=== PATIENT | female | born 1975 | race Caucasian/White ===

== ENCOUNTER 2019-03-11 06:29 | Day surgery (SDC) | payer OTHER ==
[~2019-03-11 06:29] MED LIST: ASPI-630 PO; CALC500T30 PO; DEXT20CA7 PO; MULT-245 PO; OMEG1CAP27 PO; QUET50TA5 PO; VENL150C PO
[2019-03-11] MEDS ORDERED: MORPHINE SULFATE 2 MG/ML VIAL. IV PRN (07:00)
[2019-03-11] MEDS ORDERED: PROCHLORPERAZINE 10 MG/2 ML VIAL. IV PRN (07:00)
[2019-03-11] MEDS ORDERED: ONDANSETRON PF 4 MG/2 ML VIAL. IV PRN (07:00)
[2019-03-11] MEDS ORDERED: IV RINGERS,LACTATED 1000ML 1,000 ML IV SCH (07:00)
[2019-03-11] MEDS ORDERED: fentaNYL PF VIAL 100 MCG/2 ML VIAL IV PRN ×2 (07:00)
[2019-03-11] MEDS ORDERED: LIDOCAINE 1% PF 2 ML VIAL. ID PRN (07:00)
[2019-03-11] MEDS ORDERED: HYDROmorphone 2 MG/ML VIAL IV PRN (07:00)
[2019-03-11] MEDS ORDERED: SEVOFLURANE 61 TO 120 MINUTES. IH ONE (07:13)
[2019-03-11] MEDS ORDERED: fentaNYL PF VIAL 100 MCG/2 ML VIAL ONE (07:14)
[2019-03-11] MEDS ORDERED: GLYCOPYRROLATE 1 MG/5 ML VIAL. ONE (07:14)
[2019-03-11] MEDS ORDERED: ROCURONIUM 50 MG/5 ML VIAL. ONE (07:14)
[2019-03-11] MEDS ORDERED: DEXAMETHASONE SOD PHOS 4 MG/ML VIAL ONE (07:14)
[2019-03-11] MEDS ORDERED: ONDANSETRON PF 4 MG/2 ML VIAL. ONE (07:14)
[2019-03-11] MEDS ORDERED: MIDAZOLAM HCL/PF 2 MG/2 ML VIAL. ONE (07:14)
[2019-03-11] MEDS ORDERED: NEOSTIGMINE METHYLSULFATE 5 MG/5 ML SYRINGE. ONE (07:14)
[2019-03-11] MEDS ORDERED: KETOROLAC 30 MG/ML VIAL. ONE (07:14)
[2019-03-11] MEDS ORDERED: BUPIVACAINE-EPI 0.25%-1:200000 MPF 30 ML VIAL. INJ ONE (07:15)
[2019-03-11] MEDS ORDERED: LIDOCAINE 2% PF 5 ML VIAL. ONE (07:15)
[2019-03-11] MEDS ORDERED: PROPOFOL 20 ML IV ONE (07:15)
[2019-03-11] MEDS ORDERED: DESFLURANE 31 TO 60 MINUTES IH ONE (07:42)
--- NOTE | 2019-03-11 08:19 | PDOC ---
BRIEF OPERATIVE NOTE Date: Mar 11, 2019 Pre-Op Diagnosis Sterilization Post-Op Diagnosis Same Procedure Performed [facility] Eliezer. Salpingectomy Surgeon Dr. Mckeon Anesthesia Type: General Blood Loss 5 ml Specimens Obtained eliezer. fallopian tubes Findings nml size uterus, nml fallopian tubes and ovaries eliezer. Complications none Operative Note see dictation PRIYANKA MCKEON Jr, MD Mar 11, 2019 08:19
--- NOTE | 2019-03-11 08:21 | DISCH ---
DISCHARGE INSTRUCTIONS Condition on Discharge Condition on Discharge: Stable Activity After Discharge Activity Instructions for Disc: Activity as tolerated Lifting Instructions after Dis: No heavy lifting Driving Instructions after Dis: Do not drive today Diet after Discharge Diet after Discharge: Regular Contacting the DRJp after DC Call your doctor for: Concerns you may have Follow-Up Follow up with: Dr. Mckeon in 1 week. PRIYANKA MCKEON Jr, MD Mar 11, 2019 08:20
--- NOTE | 2019-03-11 08:24 | OP ---
DATE OF SURGERY: 03/11/2019 PREOPERATIVE DIAGNOSIS: Sterilization. POSTOPERATIVE DIAGNOSIS: Sterilization. PROCEDURE: Laparoscopic bilateral salpingectomy. SURGEON: Roger Mckeon MD ANESTHESIA: GETA. ESTIMATED BLOOD LOSS: Less than 5 mL. COMPLICATIONS: None. FINDINGS: Normal size uterus, normal fallopian tubes and ovaries bilaterally. SUMMARY: A 43-year-old female who desired permanent sterilization. She has a family history of ovarian cancer. Therefore, discussion was made on salpingectomy. She was counseled on the risks, benefits and expectations and voiced clear understanding to proceed. DESCRIPTION OF PROCEDURE: The patient was taken to surgery suite and placed in dorsal lithotomy position. She was prepped with Betadine solution as well for vaginal prep and ChloraPrep for abdominal prep and draped in sterile fashion. After adequate anesthesia, bivalve speculum was placed vaginally. The anterior lip of the cervix grasped with single tooth tenaculum. The acorn uterine manipulator was then placed. The bivalve speculum was removed. Attention was now placed on abdomen. Small transverse skin incision made just below the umbilicus. The Veress needle was then placed through the infraumbilical incision site. The abdomen was allowed to insufflate up to 1-1/2 liters CO2 gas. The Veress needle was then removed, 5 mm trocar was placed. Scope was positioned. The uterus appeared normal size. Fallopian tubes and ovaries appeared normal bilaterally. There was an incision was made in left lower quadrant, was 5 mm trocar site. The other was 8 mm trocar site. With the aid of [place] retractors and EnSeal, the right salpingectomy was performed in which the right fallopian tube was dissected away from the ovary and uterus. Using the EnSeal device, same process took place with the left adnexa. Area was hemostatic. The trocars were then removed under direct visualization. Abdomen was allowed to deflate as much as possible along with mechanical manipulation. The three skin incisions were reapproximated using 4-0 Vicryl suture in subcuticular manner. A 0.25% Marcaine with epinephrine was injected at each incision site. Uterine acorn manipulator and single tooth tenaculum were removed. The patient tolerated the procedure well and was taken to recovery room in stable condition. Sponge and needle count correct x 3. ROGER MCKEON MD DR: MICHEAL/rajat JOB#: [id number] / [id number]
[2019-03-11] MEDS ORDERED: oxyCODONE/APAP 5/325 1 TAB TABLET PO ONE (08:45)
[2019-03-11 08:50] VITALS: BP 109/67
--- NOTE | 2019-03-12 17:06 | PATHOLOGY ---
[facility] Accession Number: [id number] . 01 Material submitted: . PART A: fallopian tube - RIGHT FALLOPIAN TUBE. Modifiers: right PART B: fallopian tube - LEFT FALLOPIAN TUBE. Modifiers: left . 01 Clinical history: . Sterilization . 02 Diagnosis: A. Fallopian tube, right salpingectomy: - Segment of fallopian tube confirmed. . B. Fallopian tube, left salpingectomy: - Segment of fallopian tube confirmed. . ([facility]; 03/12/2019) [facility] 03/12/2019 1524 Local . 02 Electronically signed: . Denis Rowan MD, Pathologist NPI- [id number] . 01 Gross description: . A. The specimen is received in formalin, labeled "Lotus Hatch, right fallopian tube", is a fimbriated fallopian tube 9.0 cm in length and 0.4 cm in average diameter. It has pink-wiseman serosa and the lumen is patent. Representatively submitted in A1. . B. The specimen is received in formalin, labeled "Lotus Hatch, left fallopian tube", is a fimbriated fallopian tube 8.2 cm in length and 0.3 cm in average diameter. It has pink-wiseman serosa and the lumen is patent. Representatively submitted in B1. ([facility]; 03/11/2019) [facility] 03/12/2019 1522 Local . 02 Pathologist provided ICD-10: Z30.2 . 02 CPT . 203633, [id number] Specimen Comment: A courtesy copy of this report has been sent to [phone], [phone] Specimen Comment: [id number] Specimen Comment: Report sent to and Performed at: 01 [facility] [address], [place], [place] [id number] MD Byron Pearce MD Phone: [phone] Performed at: 02 [facility] [address], [place] [id number] MD Denis Rowan MD Phone: [phone]
== END 2019-03-11 09:10 | disposition home or self-care (01) ==
LOC: SURG 06:29
PROVIDERS: ATTEND Obstetrics & Gynecology
DX: Z30.2 Encounter for sterilization (principal); F41.9 Anxiety disorder, unspecified; F32.9 Major depressive disorder, single episode, unspecified; F11.90 Opioid use, unspecified, uncomplicated; Z87.442 Personal history of urinary calculi; Z72.89 Other problems related to lifestyle; Z85.820 Personal history of malignant melanoma of skin
CPT/HCPCS: 58670; 81025; 88302; A7015; J1100; J1885; J2001; J2250; J2405; J2704; J2710; J3010; J3490